=== PATIENT | female | born 1975 | race Hispanic/Latino ===

== ENCOUNTER 2019-10-23 13:13 | Emergency (ER) | payer SELFPAY | END 2019-10-23 15:44 | disposition home or self-care (01) | LOC: EDH 13:13 | DX: S20.211A Contusion of right front wall of thorax, initial encounter (principal); Z98.51 Tubal ligation status; V80.010A Animal-rider injured by fall from or being thrown from horse in noncollision accident, initial encounter; Y93.52 Activity, horseback riding; Y92.89 Other specified places as the place of occurrence of the external cause; Y99.8 Other external cause status ==